=== PATIENT | female | born 1960 | race Caucasian/White ===

== ENCOUNTER 2020-12-13 14:15 | Outpatient (CLI) | payer OTHER, SELFPAY | END 2020-12-13 14:16 | disposition home or self-care (01) | LOC: CHSLAB 14:21 | PROVIDERS: PCP Family Medicine; Visit Provider Specialist | DX: C44.01 Basal cell carcinoma of skin of lip (principal) | CPT/HCPCS: 88305 ==

== ENCOUNTER 2021-06-13 09:43 | Outpatient (CLI) | payer OTHER, SELFPAY | END 2021-06-13 09:44 | disposition home or self-care (01) | LOC: CHSLAB 09:46 | PROVIDERS: PCP Family Medicine; Visit Provider Specialist | DX: C44.319 Basal cell carcinoma of skin of other parts of face (principal); C44.329 Squamous cell carcinoma of skin of other parts of face | CPT/HCPCS: 88305 ==

== ENCOUNTER 2023-08-28 01:18 | Day surgery (SDC) | payer OTHER, SELFPAY ==
[2023-08-02 09:57] VITALS: BMI 32.3
--- NOTE | 2023-08-23 12:48 | SUR.PREOP ---
Patient called regarding upcoming procedure. left voicemail with procedure date and time and contact for questions.
--- NOTE | 2023-08-27 17:40 | PM.HPGS ---
History of Present Illness History of Present Illness Consent: Risks, benefits, and alternatives have been discussed and questions answered. Patient agrees to proceed with procedure. 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 She does feel like that helped the symptoms at that time.? She stopped taking Nexium several years ago.? She has esophageal burning that she feels in her back several times per week and at times after laying down she will have heartburn as well.?Her last colonoscopy was 11 years ago. Review of Systems Review of Systems: All systems reviewed & are unremarkable except as noted in HPI and below PMFSH Past Medical History Medical History Cancer carcinoma in situ cervix Colon cancer screening Gastroesophageal reflux disease Hx of skin cancer, basal cell Obesity Surgical History Surgical History H/O: hysterectomy History of repair of ACL Hx of shoulder surgery Family History Family History Father Malignant neoplasm of prostate Diabetes mellitus Social History Social History Smoking status: Former smoker Tobacco type: cigarettes Alcohol intake: current Drinks per week: 12 Substance use: never Substance use type: does not use Living arrangements: with family Spiritual care concerns: No Meds Home Medications and Allergies Home Medications Medication Instructions Recorded Confirmed Type estradiol 1 mg tablet 1 mg PO DAILY 07/11/23 08/28/23 History fluticasone propionate 50 1 spray intranasal BID 07/11/23 08/28/23 History mcg/actuation nasal spray,suspension Allergies Allergy/AdvReac Type Severity Reaction Status Date / Time No Known Allergies Allergy Verified 08/28/23 08:15 Exam Const: General: alert Orientation/consciousness: patient oriented x3 Resp: Auscultation: clear to auscultation bilaterally Cardio: Rhythm: regular rhythm GI: GI Palp: Yes Soft to palpation and No Tenderness to palpation present (GI) Neuro: General: patient oriented x3 Assessment and Plan Assessment and plan (1) Gastroesophageal reflux disease: Code(s): K21.9 - Gastro-esophageal reflux disease without esophagitis Status: Acute Assessment and Plan: EGD with possible biopsy or dilatation or cautery. (2) Colon cancer screening: Code(s): Z12.11 - Encounter for screening for malignant neoplasm of colon Status: Acute Assessment and Plan: Colonoscopy with possible biopsy or polypectomy or cautery or injection of substances.
[2023-08-28 08:08] VITALS: BP 139/99; PULSE 64; RESP 18; TEMP 36.1; O2SAT 98; BMI 33.3
[2023-08-28] MEDS: LACTATED RINGERS 1,000 ML 150 ML IV CONT (08:33)
--- NOTE | 2023-08-28 08:55 | WPDANESEPPF ---
Anes - Initial Pre Proc Eval Procedure: Operation Date: 08/28/23 09:30 Proposed Procedures p Esophagogastroduodenoscopy & Colonoscopy - Juan Montoya MD Date/Time: 08/28/23 08:55 Surgeon: Juan Montoya MD Pre Op Diagnosis: neoplasm screening, GERD without esophagitis Patient Data Age: 63 Gender: F Height: 1.55 m Weight: 80 kg Last Vital Signs Temp 97.0 F L 08/28/23 08:08 Pulse 64 08/28/23 08:08 Resp 18 08/28/23 08:08 BP 139/99 H 08/28/23 08:08 Pulse Ox 98 08/28/23 08:08 O2 Del Method Room Air 08/28/23 08:08 Allergies Allergy/AdvReac Type Severity Reaction Status Date / Time No Known Allergies Allergy Verified 08/28/23 08:15 Home Medications Medication Instructions Recorded Confirmed Type estradiol 1 mg tablet 1 mg PO DAILY 07/11/23 08/28/23 History fluticasone propionate 50 1 spray intranasal BID 07/11/23 08/28/23 History mcg/actuation nasal spray,suspension Patient hx anesthesia problems: none Family hx anesthesia problems: none Results Review: All pre-operative results and documents have been reviewed as part of the pre-operative evaluation. [facility] Past Medical History Medical History Cancer carcinoma in situ cervix Colon cancer screening Gastroesophageal reflux disease Hx of skin cancer, basal cell Obesity Surgical History Surgical History H/O: hysterectomy History of repair of ACL Hx of shoulder surgery Family History Family History Father Malignant neoplasm of prostate Diabetes mellitus Social History Social History Smoking status: Former smoker Tobacco type: cigarettes Alcohol intake: current Drinks per week: 12 Substance use: never Substance use type: does not use Living arrangements: with family Spiritual care concerns: No Anes - Eval Final PreProcedure Day of Procedure 08/28/23 08:55 Patient weight: obese Heart: regular rate and rhythm Lungs: clear to auscultation Airway: Mallampati scale class III Neurological: alert and oriented Last oral intake: >/= 8 hours ASA classification: III Emergent: no Anesthetic plan: proceed Anesthesia type and monitoring: general GIVS and standard monitoring Results Review: All pre-operative results and documents have been reviewed as part of the pre-operative evaluation. Informed Consent: The patient's anesthetic plan and its attendant risks and benefits were discussed with the patient/family/POA. Questions were solicited and answers provided to the satisfaction of the patient/family/POA.
--- NOTE | 2023-08-28 09:44 | SUR.OPER ---
EGD START: 927; END: 931. COLONOSCOPY START: 939; END: 953.
[2023-08-28 09:58] VITALS: BP 99/62; PULSE 71; RESP 14; O2SAT 100
[2023-08-28 10:08] VITALS: BP 95/55; PULSE 70; RESP 20; O2SAT 100
[2023-08-28 10:18] VITALS: BP 97/55; PULSE 67; RESP 17; O2SAT 100
== END 2023-08-28 10:30 | disposition home or self-care (01) ==
PROVIDERS: PCP Family Medicine; Visit Provider Internal Medicine Gastroenterology
PROC: 0DJ08ZZ Inspection of Upper Intestinal Tract, Via Natural or Artificial Opening Endoscopic (ICD-10-PCS; CPT 43235; principal; 2023-08-28 09:30)
DX: Z12.11 Encounter for screening for malignant neoplasm of colon (principal); K64.4 Residual hemorrhoidal skin tags; K21.00 Gastro-esophageal reflux disease with esophagitis, without bleeding; K22.2 Esophageal obstruction; E66.9 Obesity, unspecified; Z68.33 Body mass index [BMI] 33.0-33.9, adult; Z98.890 Other specified postprocedural states; Z86.001 Personal history of in-situ neoplasm of cervix uteri; Z85.828 Personal history of other malignant neoplasm of skin; Z87.891 Personal history of nicotine dependence; Z80.42 Family history of malignant neoplasm of prostate
CPT/HCPCS: 43239; 45378; 87081; 88305; J1596; J2704; J7120

== ENCOUNTER 2025-04-19 00:55 | Day surgery (SDC) | payer OTHER, SELFPAY ==
--- OUTSIDE RECORDS SUMMARY | 2024-06-01 05:00 | XMS_ITS | Continuity of Care Document ---
Author Organization [facility] [address] [place] [address] Phone Care Team Providers Care Scagliola Mechanic Name Role Phone Linus EDWARDS, Kimberly Unavailable Unavailable Allergies, Adverse Reactions, Alerts Substance Reaction Status Criticality No Known Allergies Active No Inform ation Medications Medication Instructions Dosage Effective Dates (start - stop) Status Comments pantoprazole 40 mg/100 mL (0.4 mg/mL) in 0.9 % sod chlor IV piggyback - Active Prefest 1 mg (15)/1 mg-0.09 mg (15) tablet take 1 tablet by oral route every day - Active fluticasone propionate 50 mcg/actuation nasal spray,suspension inhale 1 spray by intranasal route every day in each nostril 50 MCG - Active estradiol 1 mg tablet take 1 tablet by oral route every day 1 MG - No Longer Active Procedures Procedure Date Fundus Photography W/ Report Refraction Office/outpatient Visit, Est Fundus Photography W/ Report Eye Exam & Treatment Fundus Photography W/ Report Office/outpatient Visit, Est No Charge Optomap Fundus Photos 021 Office/outpatient Visit, New Advance Directives Directive Yes / No Effective Date File Name Other Directive No N/A N/A WARNING:The information contained in this section is historical and is provided for information only and does not constitute a legal document or any assurance that the information is still accurate. Please verify the information with the don of the legal document before using it for clinical purposes. Encounters Encounter Description Practice Location Reason(s) For Visit Diagnoses Date Provider Providers Copied on Encounter Office/outpa tient Visit, Est [facility], [address] [place] [address] [address], [place], [place], [id number], tel:[phone] SEC [place] Professional Complete Exam (chief complaint) Age-related nuclear cataract, bilateralEpire tinal membrane (ERM) of left eyeVitreomacul ar adhesion of right eyeDry eye syndrome of right eye Oct-0 4 Linus OD Kimberly. [address] [place] [address] [address], [address], [place], [place], [id number], [place]. tel:[phone] Referring Provider: Aristides Flores, [email or web address], [place], [address] . tel:[phone] [facility], [address] [place] [address] [address], [place], [place], [id number], [place] tel:[phone] SEC [place] Professional WIE (chief complaint) Vitreous degeneration, bilateralAge-r elated nuclear cataract, bilateralEpire tinal membrane (ERM) of left eye Oct-2 2 Aakash Irving. [address], [address], [place], [place], [address], [place]. tel:[phone] Specialist : Augusto Banegas MD, [address] [place] [address], [address] . tel:[phone] erring Provider: Aristides Flores, [email or web address], [place], [address] . tel:[phone] Office/outpa tient Visit, Est [facility], [address] [place] [address] [address], [place], [place], [address], [place] tel:[phone] SEC [place] Professional PVD f/u (chief complaint) Vitreous degeneration, bilateral May- 1 Aakash Irving. [address] [facility], [address], [place], [place], [address], . tel:[phone] Referring Provider: Aristides Flores, [address] [facility] [address], [place], [address] . tel:[phone] Office/outpa tient Visit, [facility], [address], [place], [place], [address], tel:[phone] [place] Professional WIE (chief complaint) Age-related nuclear cataract, bilateralVitre ous degeneration, left eye Nov-2 1 Aakash Irving. [address] [facility], [facility] [address], [place], [place], [address], [place]. tel:[phone] Referring Provider: Aristides Flores, [address] [facility] [address], [place], [address] . tel:[phone] Family History Family Member Type Diagnosis Age At Onset Problem Family history of degenerati ve disorder of macula Problem Family history of glaucoma Payers Payer name Insurance type Covered republican ID Mario clay(s) Maurotna CI [id number] Social History Type Description Quantity Date Captured Comments Alcohol Use Details Caffeine Use Details Tobacco Use Status Ex-cigarette smoker 024 Smoking Status Former smoker Smoking Tobacco Use Details Cigarette: Age Stopped: 18 Cigarette: No Details Available Sex Female Chief Complaint And Reason For Visit From encounter dated '06/01/2024 10:00'. Complete Exam (chief complaint). Description: The 64 year old patient presents for evaluation of Complete Exam in the right eye and left eye. Pt states no changes in Ou since last visit. [facility] to [facility] after last visit and they said they it was nothing over concerning and to follow up with them as needed. Reason For Referral Reason For Referral No Information Plan Of Treatment Date Type Action Status Goal Tobacco cessation counseling completed Goal Tobacco cessation counseling completed Referral Referred To: Augusto Banegas MD [address] [place], [place], [phone] Ordered: Referrals: Allopathic & Osteopathic Physicians : Ophthalmology. Augusto Banegas MD Evaluate and treat ordered Patient Education Cataracts: Care Instruc tions completed Patient Education Learning About Vitreous Detachment completed Patient Education Learning About Vitreous Detachment completed History Of Present Illness Encounter Date Complaint History Of Prese nt Illness Complete Exam The 64 year old patient presents for evaluation of Complete Exam in the right eye and left eye. Pt states no changes in Ou since last visit. [facility] to [facility] after [facility] visit and they said they it was nothing over concerning and to follow up with them as needed. WIE The 61 year old patient presents for evaluation of WIE in the right eye. Patient states she started seeing flashes of light about a week ago then a couple of days ago her floaters got worse out of the right eye. PVD f/u The 60 year old female presents for evaluation of PVD f/u in the left eye. Hx Cataract OU. Pt reports still noticing floaters and flashes OS. She primarily notices flashes of light when she moves from a light to dark room. Pt denies dark curtains OU. WIE The 60 year old female presents for evaluation of WIE in the left eye. Hx of BRUNA OU and an Old eye injury. Patient states she started seeing flashes of light out of her left eye x 1 week. Patient states she has had floaters for years but increased floaters. Functional Status Date Functional Assessmen t No Information Medications Administered Medication Instructions Dosage Effective Dates (start - stop) Status Comments estradiol 1 mg tablet take 1 tablet by oral route every day 1 MG - No Longer Active Instructions Date Instruction Additional Infor abdon Impression/Plan Impression/Plan Impression/Plan Impression/Plan Assessments Type Assessment Date assessment Age-related nuclear cataract, bi lateral assessment Epiretinal membrane (ERM) of lef t eye assessment Vitreomacular adhesion of right eye assessment Dry eye syndrome of right eye Oc Patient Care Teams Name Effective Dates (start - stop) Status Members No Information
[2025-02-25 13:58] VITALS: BMI 33.6
--- NOTE | 2025-02-25 14:06 | PC.NURSE ---
Addendum entered by Rajesh Velez RN 04/08/25 12:42: Says no health history changes since prior interview. Instructed to be here at 0730 on 04-19-2025 for surgery at 0930. Reviewed all instruction below with patient again. Original Note: Report to the Outpatient Waiting Room, entrance under the green pavilion located off [facility], at time _0700_ on date _[id number]_. Planned Procedure Time: _0900_.? Time changes happen often and if your time is changed the preop area will call you the afternoon before. - You and your visitor will be asked to self-screen and do not enter if you have any COVID symptoms. Please call surgeon if you need to reschedule. - A mask is optional within the hospital at this time. Patients may have clear liquids (water, carbonated beverages, clear teas, apple juice) until 3 hours prior to surgery with a maximum of 20 ounces. - No food from midnight until time of surgery and no smoking, or chewing tobacco (or any form of nicotine). No chewing gum, candy or mints. Take only the following medications with a SIP of water on the morning of surgery: __Flonase DO NOT STOP ANY OF YOUR OTHER PRESCRIPTION MEDICATIONS PRIOR TO SURGERY EXCEPT THE FOLLOWING Hold all vitamins and supplements for 3 days per anesthesiologist. Medications to discontinue per physician Date to take last dose Please no make-up, nail burkinan, hairspray, perfume, deodorant, or body powder the day of surgery.? No jewelry (including any body piercings) or valuables the day of surgery, leave them at home.? Please take a shower or bath the night before, or the morning of, surgery with an antibacterial soap.? Wear comfortable, loose fitting clothing.? - Jewelry must be removed prior to entering the operating room.? Rings and piercings that are not removed may be cut off. - The hospital will not accept responsibility for valuables.? - Please leave all valuables, including medications, at home the day of surgery. If you are going home after surgery, a licensed moving van driver must drive you home.? - NO public transportation without another adult if you receive anesthesia. - We recommend that an adult stay with you for 24 hours following discharge. - We also recommend that you do not drive, make important decision, drink alcoholic beverages, or take any drugs that were not prescribed by your health care provider for at least 24 hours after your discharge time. Follow any additional instructions given to you from your surgeon. Telephone instructions given to ___Nancy__and asked if any additional questions and then verbalized understanding. Patient advised to call surgeon office or pre surgery nurse liaison [phone] if any additional questions.
[2025-04-19] VITALS (9 sets, daily range): BP systolic 149–160; BP diastolic 71–89; PULSE 53–89; RESP 10–18; TEMP 36.2; O2SAT 12–100
--- OUTSIDE RECORDS SUMMARY | 2025-04-19 00:58 | XMS_ITS | Clinical Summary ---
Author Organization [facility] Address [address] [place] [address] Care Team Providers Care Nurse Technician Name Role Phone Mitch Monreal MD Primary Care Provider Source Comments [facility],non-owned Affiliates and Associated Physician Practices is amultiple site organization consisting of ambulatory clinics and hospital sitesin [place], [place], [place] and [place]. This disclosure is being madepursuant to the Care Everywhere program and may not contain all information available regarding this patient. Last updated 18.[facility] Social History Tobacco Use Types Packs/Day Years Used Date Smoking Tobacco: Never Assessed Comments Unknown Sex and Gender Information Value Date Recorded Sex Assigned at Not on file Legal Sex Female 2:05 PM CDT Gender Identity Not on file Sexual Orientation Not on file Plan of Treatment Health Maintenance Due Date Last Done Comments COLOGUARD (AGES 45-75) - COL ON CA SCREENING 1960 COLON MONITORING 1960 COLONOSCOPY - COLON CA SCREENING 1960 CT COLONOGRAPHY - COLON CA SCREENING 1960 Colorectal Cancer Screening 1960 FIT - COLON CA SCREENING 1960 FLEX SIG - COLON CA SCREENING 1960 LIPID TESTING 1960 MAMMOGRAM 1960 HIV SCREENING 1975 HEPATITIS C SCREENING 05/09/1978 DTAP/TDAP/TD VACCINES (1 - Tdap) 1979 PAP SMEAR 1981 PNEUMOCOCCAL VACCINE 50+ (1 of 1 - PCV) 2010 ZOSTER VACCINE (1 of 2) 2010 COVID-19 VACCINE (1 - 2023-2 5 season) 2024 DEPRESSION SCREENING 08/26/2024 INFLUENZA VACCINE (#1) 2025 Respiratory Syncytial Virus (RSV) Vaccine Pt: or over 60 yrs (1 - 1-dose 75+ series) 2035 HEPATITIS B VACCINE Aged Out No longe r eligible based on patient's age to complete this topic HIB VACCINE Aged Out No longer eligi ble based on patient's age to complete this topic HPV VACCINE Aged Out No longer eligi ble based on patient's age to complete this topic MENINGOCOCCAL (Group B) VACC INE SHARED DECISION-MAKING Aged Out No longer eligibl e based on patient's age to complete this topic MENINGOCOCCAL GROUPS A/C/Y/W VACCINE Aged Out No longer eligible b ased on patient's age to complete this topic Insurance [employer] SELF PAY NO INSURANCE Member Subscriber Plan / Payer (Ef fective for All Dates) Name:Viridiana Alvarez Member ID:Not on file Relation to Subscriber:Not on file Name:VIRIDIANA ALVAREZ Subscriber ID:Not on file (Home) Address: [address] [place] [address] Payer ID:Not on file Group ID:Not on file Type:Self Pay Address: [place], [place] Care Teams Nurse Technician Relationship Specialty Start Date End Date Mitch Monreal MD [address] [place] [phone] PCP - General 06/18/21
--- OUTSIDE RECORDS SUMMARY | 2025-04-19 00:58 | XMS_ITS | Clinical Summary ---
Author Organization [facility] Address [address] [place] [address] Phone Care Team Providers Care Commodity Broker Name Role Phone Mitch Monreal MD Primary Care Provider [phone] Social History Tobacco Use Types Packs/Day Years Used Date Smoking Tobacco: Never Assessed Comments Unknown Sex and Gender Information Value Date Recorded Sex Assigned at Not on file Legal Sex Female 10:56 PM CDT Gender Identity Not on file Sexual Orientation Not on file Plan of Treatment Health Maintenance Due Date Last Done Comments Hepatitis C Virus (HCV) Screening 1960 TdaP Immunization 1960 Pap Smear 1981 Cervical Cancer Screening (CCS) 1990 HPV/Cotest 1990 Cologuard 2005 Colonoscopy 2005 Colorectal Cancer Screening 2005 Immunochemical Fecal Occult Blood 2005 Pneumococcal Immunization (50+ years) (1 of 1 - PCV) 2010 SARS-COV-2 Immunization ( season) 2024 08/02/2021, 10/18/2020, 09/20/2020 Influenza Immunization (#1) 04/26/202505/26, 06/17/2019, 06/11/2018, Additional history exists Respiratory Syncytial Virus (RSV) Immunization (Adult) (1 - 1-dose 75+ series) 2035 Zoster Immunization Completed 07/28/2018, 8 Hepatitis B Immunization Aged Out No longer eligible based on patient's age to complete this topic Human Papillomavirus (HPV) Immunization Aged Out No longer eligible based on patient's age to complete this topic Meningococcal Immunization (ACWY) Aged Out No longer eligible based on patient's age to complete this topic Rotavirus Immunization Aged Out No lo nger eligible based on patient's age to complete this topic Insurance [employer] SOI Care Teams Commodity Broker Relationship Specialty [place] [address] [place] [address] PCP - General Family Medicine 01/16/21
--- OUTSIDE RECORDS SUMMARY | 2025-04-19 00:58 | XMS_ITS | Clinical Summary ---
Author Organization [facility] Address [address] [place] [address] Care Team Providers Care Technical Education Teacher Name Role Phone Mitch Monreal MD Primary Care Provider [phone] Allergies Active Allergy Reactions Criticality Noted Date Comments Adhesive Tape-Silicones Rash Medium 06/27/2018 Medications fluticasone (FLONASE) 50 mcg/actuation nasal spray inhale 2 spray by Intranasal route every day in each nostril 3 Inhaler 3 3 Active montelukast (SINGULAIR) 10 mg tablet take 1 tablet (10MG) by ORAL route every day in the evening 90 3 1 Active melatonin 5 mg tablet 5 mg. 0 0 5 Active estradiol (ESTRACE) 2 mg tablet take 1 tablet by oral route every day 0 0 5 Active flaxseed 1,000 mg capsule Take by mouth. Acti ve cholecalciferol (VITAMIN D-3) 10,000 unit capsule Take 10,000 Units by mouth daily. Active fish oil-dha-epa 1,200-144-216 mg capsule Take by mouth. Acti ve vitamin P51-bnptc acid 0.5-1 mg tablet Take by mouth daily. Active estradiol-melodie stimate (Prefest) 1 mg (15)/1 mg- 0.09 mg (15) tablet Take 1 tablet by mouth daily Active predniSONE (DELTASONE) 10 mg tablet 1 Active Active Problems Problem Noted Date Diagnosed Date Basal cell carcinoma (BCC) of right side of nose 07/30/2018 Injury of head 12/07/2014 Overview (11/30/2016): Head trauma Syncope 12/07/2014 Overview (11/30/2016): Syncope Headache 12/07/2014 Overview (11/30/2016): Headache Insomnia 01/09/2014 Overview (11/30/2016): INSOMNIA NEC Atopic rhinitis 01/09/2014 Overview (11/30/2016): ALLERGIC RHINITIS NOS Immunizations Immunization Administration Dates Next Due Influenza, Split 06/26/2010 Tdap 01/01/2006 Surgical History Surgery Date Site/Laterality Comments OTHER SURGICAL HISTORY 1989 cervical carcinoma insitu: Hysterectomy, vaginal Medical History Medical History Date Comments Insomnia insomnia Hx Other Medical HNP T spine Hx Other Medical 1989 cervical carcin margarito insitu 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 Hx Other Medical ACL reconstruct ion Hx Other Medical Skin cancer rem oval from vulva Hx Other Medical 2012 basal cell canc er removal vulva Hx Other Medical GERD Hx Other Medical Back pain Osteoarthritis Osteoarthritis Family History Medical History Relation Name Comments Diabetes type II Father Diabetes -T ype II; Prostate cancer Father Cancer -pros barrera; Breast cancer Maternal Grandmother Cancer -breast; Relation Name Status Comments Father Maternal Grandmother Alive Social History Tobacco Use Types Packs/Day Years Used Date Smoking Tobacco: Former Smokeless Tobacco: Never Tobacco Cessation:Counseling Given: Not Answered Comments:quit 40 yrs ago Alcohol Use Standard Drinks/Week Comments Yes 0 (1 standard drink = 0.6 oz pur e alcohol) Comments Unknown Sex and Gender Information Value Date Recorded Sex Assigned at Not on file Legal Sex Female 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 Gender Identity Not on file Sexual Orientation Not on file Obstetrics History Last Filed Vital Signs Vital Sign Reading Time Taken Comments Blood Pressure 119/76 04/29/2024 7:49 AM CDT Pulse 61 04/29/2024 7:49 AM CDT Temperature - - Respiratory Rate - - Oxygen Saturation 96% 04/29/2024 7:49 AM CDT Inhaled Oxygen Concentration - - Weight 76.2 kg (168 lb) 08/31/2015 4:00 PM BLANKING PRESS OPERATOR Height 153.7 cm (5' 0.5) 08/31/2015 4:00 PM BLANKING PRESS OPERATOR Body Mass Index 32.27 08/31/2015 4:00 PM BLANKING PRESS OPERATOR Plan of Treatment Not on file Insurance [facility] Care Teams Technical Education Teacher Relationship Specialty Start Date End Date Mitch Monreal MD PCP - General Family Medicine 05/28/18
--- OUTSIDE RECORDS SUMMARY | 2025-04-19 00:58 | XMS_ITS | Encounter Summary ---
Author Organization [facility] Address [address] [place] [address] Care Team Providers Care Orthotist Prosthetist Name Role Phone Mitch Monreal MD Primary Care Provider [phone] Encounter Details Date Type Department Care Team (Late st Contact Info) Description 07/02/2023 Lab Requisition [facility] - DermPath Lab [address] [facility] [place] [address] Bay Gonzalez Jr., MD [address] [facility] [address] [place] [address] Social History Tobacco Use Types Packs/Day Years Used Date Smoking Tobacco: Never Assessed Comments Unknown Sex and Gender Information Value Date Recorded Sex Assigned at Not on file Legal Sex Female 2:05 PM CDT Gender Identity Not on file Sexual Orientation Not on file documented as of this encounter Plan of Treatment Not on file documented as of this encounter Procedures Procedure Name Priority Date/Time Associated Diagnosis Comments DERMATOPATHOLOGY Routine 07/01/2023 12:0 0 AM SERGING MACHINE OPERATOR documented in this encounter Results * DERMATOPATHOLOGY (07/01/2023 12:00 AM SERGING MACHINE OPERATOR) Case Report Dermatopathology Report Case: [id number] Authorizing Provider: Bay Gonzalez Jr., MD Collected: 07/01/2023 12:00 AM Ordering Location: [facility] DermPath Lab Received: 07/02/2023 02:09 PM Pathologist: Arabella Mendoza MD Specimen: Skin, right anterior distal thigh 2:07 PM SERGING MACHINE OPERATOR DERMATOPATHOLOGY LABORATORY Final Diagnosis Specimen A. SKIN, right anterior distal thigh: VERRUCA VULGARIS (B07.8) 3 2:07 PM [facility] DERMATOPATHOLOGY LABORATORY at 1407 SERGING MACHINE OPERATOR Clinical History Inflamed Seborrheic Keratosis vs. Nguyen's Disease vs. Verruca Vulgaris 3 2:07 PM [facility] DERMATOPATHOLOGY LABORATORY Gross Description Specimen A: Received is one formalin filled container labeled with the patient's name and designated right anterior distal thigh. The specimen consists of a shave biopsy measuring 6x6x2 mm. Jar 0. 3 2:07 PM [facility] DERMATOPATHOLOGY LABORATORY Microscopic Description Specimen A. SKIN, right anterior distal thigh: There is digitated epidermal hyperplasia, hypergranulosis, vacuolated granular layer cells, and compact hyperorthokeratosis . 3 2:07 PM [facility] DERMATOPATHOLOGY LABORATORY Disclaimer An external and internal positive and negative controls are appropriate for the histochemical, immunohistochemical and immunofluorescence stain(s) in this case (if any), except where stated explicitly. The performance characteristics of the stain(s) cited in this report were developed and its performance characteristic determined by the Dermatopathology Laboratory at [facility], directed by Dr. Mark Thompson. These tests need not be, and therefore are not, approved by the [place] Food and Drug Administration. The tests are used for clinical purposes. Billing Codes Specimen Charges Stain Charges 38411 1 3 2:07 PM [facility] DERMATOPATHOLOGY LABORATORY Embedded Images 3 2:07 PM [facility] DERMATOPATHOLOGY LABORATORY Pathology/Cytolog y TISSUE SPECIMEN FROM SKIN / Unknown 07/01/2023 07/02/2023 2:09 PM [facility] Bay Gonzalez Jr., MD LAB - PATHOLOGY/CYTOLOG Y ORDERABLES Final Result DERMATOPATHOLOGY LABORATORY [facility] - Department of Dermatology [address] [place] [address], [facility] [phone] documented in this encounter Visit Diagnoses Not on filedocumented in this encounter Care Teams Orthotist Prosthetist Relationship Specialty Start Date End Date Mitch Monreal MD [address] [place] [phone] PCP - General 06/18/21 documented as of this encounter
--- OUTSIDE RECORDS SUMMARY | 2025-04-19 00:58 | XMS_ITS | Encounter Summary ---
Author Organization [facility] Address [address] [place] [address] Care Team Providers Care Community Relations Coordinator Name Role Phone Mitch Monreal MD Primary Care Provider Encounter Details Date Type Department Care Team (Late st Contact Info) Description 03/23/2024 Lab Requisition [facility] - DermPath Lab [address] [facility] [place] [address] Bay Gonzalez Jr., MD [address] [facility] [address] [place] [address] Social History Tobacco Use Types Packs/Day Years [...] Priority Date/Time Associated Diagnosis Comments DERMATOPATHOLOGY Routine 03/20/2024 3:33 AM CDT documented in this encounter Results * DERMATOPATHOLOGY (03/20/2024 3:33 AM CDT) Case Report Dermatopathology Report Case: [id number] Authorizing Provider: Bay Gonzalez Jr., MD Collected: 03/20/2024 03:33 AM Ordering Location: [facility] - Received: 03/23/2024 11:50 AM DermPath Lab Pathologist: Emily Jordan MD Specimens: A) - Skin, right anterior distal thigh B) - Skin, left medial proximal pretibial region C) - Skin, right inferior medial malar cheek D) - Skin, left distal lateral posterior upper arm 4 4:09 PM CDT DERMATOPATHOLOGY LABORATORY Final Diagnosis Specimen A. SKIN, right anterior distal thigh: BENIGN VERRUCOUS KERATOSIS (L82.1) Specimen B. SKIN, left medial proximal pretibial region: HYPERPLASTIC (HYPERTROPHIC) ACTINIC KERATOSIS (L57.0) Specimen C. 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 SKIN, left distal lateral posterior upper arm: BENIGN VERRUCOUS KERATOSIS, INFLAMED (L82.1) 4 4:09 PM T DERMATOPATHOLOGY LABORATORY at 1609 CDT Clinical History A-B: SCC vs AK vs ISK vs VV C: Keratoacanthoma D: ISK vs VV 4 4:09 PM T DERMATOPATHOLOGY LABORATORY Gross Description Specimen A: Received is one formalin filled container labeled with the patient's name and designated right anterior distal thigh. The specimen consists of a shave biopsy measuring 7x7x3 mm. Jar 0. Specimen B: Received is one formalin filled container labeled with the patient's name and designated left medial proximal pretibial region. The specimen consists of a shave biopsy measuring 7x7x3 mm. Jar 0. Specimen C: Received is one formalin filled container labeled with the patient's name and designated right inferior medial malar cheek. The specimen consists of a shave biopsy measuring 8x8x5 mm. Jar 0. Specimen D: Received is one formalin filled container labeled with the patient's name and designated left distal lateral posterior upper arm. The specimen consists of a shave biopsy measuring 84u10y1 mm. Jar 0. 4 4:09 PM CDT DERMATOPATHOLOGY LABORATORY Microscopic Description Specimen A. SKIN, right anterior distal thigh: Sections show hyperkeratosis, papillomatosis, hypergranulosis, and acanthosis. These histological findings can be seen in a verruca vulgaris or a seborrheic keratosis. Specimen B. SKIN, left medial proximal pretibial region: There is hyperkeratosis alternating with parakeratosis. There is epidermal hyperplasia with disorderly maturation of keratinocytes with nuclear pleomorphism confined to the lower half of the epidermis. Specimen C. SKIN, right inferior medial malar cheek: Sections show an endo exophytic crateriform lesion with a keratotic plug, formed by confluent follicle-like structures with relatively large keratinocytes. Specimen D. SKIN, left distal lateral posterior upper arm: Sections show hyperkeratosis, papillomatosis, hypergranulosis, and acanthosis. Inflammatory cells are present within the dermis. These histological findings can be seen in a verruca vulgaris or a seborrheic keratosis. 4 4:09 PM CDT DERMATOPATHOLOGY LABORATORY Disclaimer An external and internal positive and negative controls are appropriate for the histochemical, immunohistochemical and immunofluorescence stain(s) in this case (if any), except where stated explicitly. The performance characteristics of the stain(s) cited in this report were developed and its performance characteristic determined by the Dermatopathology Laboratory at [facility], directed by Dr. Mark Thompson. These tests need not be, and therefore are not, approved by the [place] Food and Drug Administration. The tests are used for clinical purposes. Billing Codes Specimen Charges Stain Charges 16327 74473 83062 80078 1 1 1 1 4 4:09 PM CDT DERMATOPATHOLOGY LABORATORY Embedded Images 4 4:09 PM CDT DERMATOPATHOLOGY LABORATORY Pathology/Cytology TISSUE SPECIMEN FROM SKIN / Unknown 03/20/2024 3:33 AM CDT 03/23/2024 11:50 AM CDT Miscellaneous samples (specimen) TISSUE SPECIMEN FROM SKIN / Unknown 03/20/2024 3:33 AM CDT 03/23/2024 11:50 AM CDT Miscellaneous samples (specimen) TISSUE SPECIMEN FROM SKIN / Unknown 03/20/2024 3:33 AM CDT 03/23/2024 11:50 AM CDT Miscellaneous samples (specimen) TISSUE SPECIMEN FROM SKIN / Unknown 03/20/2024 3:33 AM CDT 03/23/2024 11:50 AM CDT us Bay Gonzalez Jr., MD LAB - PATHOLOGY/CYTOLOG Y ORDERABLES Final Result DERMATOPATHOLOGY LABORATORY [facility] - Department of Dermatology [address], [address] Floor [place], [place] [address] [place] [address] documented in this encounter Visit Diagnoses Not on filedocumented in this encounter Care Teams Community Relations Coordinator Relationship Specialty Start Date End Date Mitch Monreal MD [address] [place] [phone] PCP - General 06/18/21 documented as of this encounter
--- OUTSIDE RECORDS SUMMARY | 2025-04-19 00:58 | XMS_ITS | Clinical Summary ---
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 Gender Identity Not on file Sexual Orientation Not on file Plan of Treatment Health Maintenance Due Date Last Done Comments Colorectal Cancer Screening Colonoscopy (10 Years) 1960 Annual Physical 1963 Hepatitis C 1978 Pneumococcal Vaccine: 50+ Years (1 of 1 - PCV) 2010 DTaP, Tdap and Td Vaccines (2 - Td or Tdap) 01/02/2016 01/01/2006 COVID-19 Vaccine ( - season) 2024 Cervical Cancer Screening Pap Smear (Age 30 to 64) Every 3 Years 05/23/2025 05/23/2022 Mammogram Screening 11/26/2026 11/26/2024, 10/18/2023, 09/17/2022, Additional history exists Cervical Cancer Screening Pap with HPV Testing (Age 30 to 64) Every 5 Years 05/23/2027 05/23/2022 Cervical Cancer Screening with HPV 05/23/2027 RSV Immunization or 60+ Years (1 - 1-dose 75+ series) 2035 Zoster Vaccines Completed 07/28/2018, 05/29/2018 Meningococcal B Vaccine Aged Out No l onger eligible based on patient's age to complete this topic Meningococcal Vaccine Aged Out No juno jameson eligible based on patient's age to complete this topic RSV Immunizations Under 20 Months Aged Out No longer eligible based on patient's age to complete this topic Procedures Procedure Name Priority Date/Time Associated Diagnosis Comments MG SCREENING W SHYLA AMI DIGI Routine 11/26/2024 10:07 AM CDT Visit for screening mammogram HUMAN PAPILLOMAVIRUS, HIGH-RISK TYPES Routine 05/23/2022 12:00 PM CDT CYTOPATH CERV/VAG THIN LAYER Routine 05/23/2022 7:24 AM CDT from Last 3 Months or Most Recently Relevant to Health Maintenance Results * MG SCREENING W SHYLA AMI DIGI (11/26/2024 10:07 AM CDT) Anatomical Region Laterality Modality Breast Bilateral Mammography 11/26/2024 11:3 5 AM CDT Impressions 11/26/2024 11:35 AM CDT IMPRESSION: No suspicious change since the previous exams. Recommendation: 1: Routine Screening Bilateral in 1 Year Assessment: ACR BI-RADS 2 - BENIGN FINDING(S) Ordered By: MITCH GAYLE Interpreted By: Terry Parada MD, 11/26/2024 11:35 AM Narrative 11/26/2024 11:35 AM CDT [address] [place] [address] Examination: Digital screening mammogram with CAD. Clinical history: Asymptomatic patient presents for routine screening. Comparison: 10/18/2023, 09/17/2022, 07/27/2021, 07/11/2020. Technique: Bilateral digital mammograms. The exam was interpreted with the use of a computer-aided detection (CAD) system. Additional 3-D tomosynthesis images were acquired. Tissue density: There are scattered areas of fibroglandular density. Findings: The breast tissue contains scattered fibroglandular densities. Benign-appearing calcification noted. No suspicious mass, microcalcification or area of architectural distortion can be identified. From a mammographic standpoint, routine followup in one year would seem adequate. Mitch Gayle MD MAMMO Final Result * HUMAN PAPILLOMAVIRUS, HIGH-RISK TYPES (05/23/2022 12:00 PM CDT) SPECIMEN CERVICAL/END OCERVICAL 05/25/2022 8:55 AM CDT [facility] HPV DNA HIGH RISK NEGATIVE NEGATIVE 05/25/2022 5:23 PM CDT [facility] Comment:SEE CYTOLOGY REPORT 05/23/2022 12:0 0 PM CDT Mirlande Archuleta MD PATHOLOGY/CYTOLOGY ORDERABLES Final Result [facility] [address] [place] [address], * Cytopath Cerv/Vag Thin Layer (05/23/2022 7:24 AM CDT) THIN PREP PAP [facility] [address] [place] [address] Department of Pathology Pathology Report CERVICAL/VAGINAL PAP SMEAR REPORT Name: VIRIDIANA WELCH Age: 9 1960 (Age: 62) Location: [facility] Sex: F Collected Date: 05/23/2022 Hospital #: [id number] Date Received: 05/25/2022 Date Reported: 05/29/2022 Provider: MIRLANDE GAYLE MD INTERPRETATION CERVICAL/ENDOCERVI ADRIENNE: SATISFACTORY FOR EVALUATION. ENDOCERVICAL/TRANS FORMATION ZONE COMPONENT ABSENT. NEGATIVE FOR INTRAEPITHELIAL LESION OR MALIGNANCY. NEGATIVE FOR HIGH RISK HPV. The FDA approved Aptima HPV assay is an in vitro nucleic acid amplification test for the qualitative detection of E6/E7 viral messenger RNA (mRNA) from 14 high-risk types of human papillomavirus (HPV) in cervical specimens. The high-risk HPV types detected by the assay include: 16,18,31,33,35,39, 45,51,52,56,58,59, 66, and 68. 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 It is a screening test. Negative results on combined screening (Pap test and HPV-DNA) have a high negative predictive value (99.1-100 percent) for cervical cancer. The pap test is not effective in detecting cervical adenocarcinoma. [facility] 05/23/2022 7:24 AM CDT 05/25/2022 7:24 AM CDT Comment:CERVICAL/ENDOCERVICA L Mirlande Archuleta MD PATHOLOGY/CYTOLOGY ORDERABLES Final Result [facility] [address] [place] [address], from Last 3 Months or Most Recently Relevant to Health Maintenance Insurance [employer] Care Teams Heel Breaster Relationship Specialty Start Date End Date Mitch Gayle MD PCP - General FAMILY PRACTICE 03/03/18
[2025-04-19] MEDS: ACETAMINOPHEN 500 MG TABLET 1000 MG PO (07:25)
--- NOTE | 2025-04-19 07:27 | PM.IMHP ---
H&P: HPI History of Present Illness Date/Time: 04/19/25 07:27 Chief Complaint: chronic rhinosinusitis Review of Systems Review of Systems: All systems reviewed & are unremarkable except as noted in HPI and below PMFSH Past Medical History Medical History Hx of skin cancer, basal cell Obesity Cancer carcinoma in situ cervix Colon cancer screening Gastroesophageal reflux disease Surgical History Surgical History Hx of shoulder surgery History of repair of ACL H/O: hysterectomy Family History Family History Father Malignant neoplasm of prostate Diabetes mellitus Social History Social History Smoking packs per day: 1 Smoking cigarettes per day: 20.0 Years smoked: 5 Smoking pack-years: 5.00 Smoking status: Former smoker Tobacco type: cigarettes Smoking end date: 02/26/80 Alcohol intake: current Drinks per week: 10 Substance use: never Substance use type: does not use Living arrangements: with family Spiritual care concerns: No Meds Home Medications and Allergies Home Medications ?Medication ?Instructions ?Recorded ?Confirmed ?Type estradiol 1 mg tablet 1 mg PO DAILY 07/11/23 02/25/25 History fluticasone propionate 50 1 spray intranasal BID 07/11/23 02/25/25 History mcg/actuation nasal spray,suspension pantoprazole 40 mg tablet,delayed 40 mg PO QAM #90 tabs 09/02/23 02/25/25 Rx release calcium carbonate (Calcium 500) 500 mg PO DAILY 02/25/25 04/08/25 History cholecalciferol (vitamin D3) 25 1,000 unit PO DAILY 02/25/25 02/25/25 History mcg (1,000 unit) tablet (Vitamin D3) loratadine 10 mg tablet 10 mg PO DAILY 02/25/25 02/25/25 History (Allerclear) Allergies Allergy/AdvReac Type Severity Reaction Status Date / Time No Known Allergies Allergy Verified 04/08/25 12:43 Exam Narrative: deviated septum, chronic sinusitis, rest of exam wnl Assessment and Plan Assessment and plan (1) Deviated septum: Code(s): J34.2 - Deviated nasal septum Status: Acute Plan Pt here for septoplasty, turbinoplasty, bilateral maxillary antrostomy. r/b/a reviewed, all questions answered, pt understands and agrees to proceed. refer to outpt H&P for further details
--- NOTE | 2025-04-19 07:29 | WPDHPUPDATE1 ---
History and Physical Update Update Date/Time: 04/19/25 07:29 History and Physical has been reviewed, including an updated exam of the patient. There are NO changes in the patient's condition. Risks, benefits, and alternatives have been discussed and questions answered. Patient agrees to proceed with procedure.
[2025-04-19] MEDS: LACTATED RINGERS 1,000 ML 30 ML IV CONT ×2 (07:30→10:15)
--- NOTE | 2025-04-19 07:47 | WPDANESEPPF ---
Anes - Initial Pre Proc Eval Procedure: Operation Date: 04/19/25 09:30 Proposed Procedures p Bilateral Turbinate Reduction, - Oli Guerrero MD s Bilateral Maxillary Antrostomy, - Oli Guerrero MD s Septoplasty - Oli Guerrero MD Date/Time: 04/19/25 07:47 Surgeon: Oli Guerrero MD Pre Op Diagnosis: deviat septum, turbinate hypertrophy, chronic sinu Patient Data Age: 64 Gender: F Height: 1.54 m Weight: 86.7 kg Last Vital Signs Temp 36.2 C L 04/19/25 07:15 Pulse 53 L 04/19/25 07:15 Resp 18 04/19/25 07:15 BP 160/82 H 04/19/25 07:15 Pulse Ox 99 04/19/25 07:15 O2 Del Method Room Air 04/19/25 07:15 Allergies Allergy/AdvReac Type Severity Reaction Status Date / Time No Known Allergies Allergy Verified 04/19/25 07:37 Home Medications ?Medication ?Instructions ?Recorded ?Confirmed ?Type estradiol 1 mg tablet 1 mg PO DAILY 07/11/23 04/19/25 History fluticasone propionate 50 1 spray intranasal BID 07/11/23 04/19/25 History mcg/actuation nasal spray,suspension pantoprazole 40 mg tablet,delayed 40 mg PO QAM #90 tabs 09/02/23 02/25/25 Rx release calcium carbonate (Calcium 500) 500 mg PO DAILY 02/25/25 04/19/25 History cholecalciferol (vitamin D3) 25 1,000 unit PO DAILY 02/25/25 04/19/25 History mcg (1,000 unit) tablet (Vitamin D3) loratadine 10 mg tablet 10 mg PO DAILY 02/25/25 04/19/25 History (Allerclear) Patient hx anesthesia problems: none Family hx anesthesia problems: none Results Review: All pre-operative results and documents have been reviewed as part of the pre-operative evaluation. [facility] Past Medical History Medical History Hx of skin cancer, basal cell Obesity Cancer carcinoma in situ cervix Colon cancer screening Gastroesophageal reflux disease Surgical History Surgical History Hx of shoulder surgery History of repair of ACL H/O: hysterectomy Family History Family History Father Malignant neoplasm of prostate Diabetes mellitus Social History Social History Smoking packs per day: 1 Smoking cigarettes per day: 20.0 Years smoked: 5 Smoking pack-years: 5.00 Smoking status: Former smoker Tobacco type: cigarettes Smoking end date: 02/26/80 Alcohol intake: current Drinks per week: 10 Substance use: never Substance use type: does not use Living arrangements: with family Spiritual care concerns: No Anes - Eval Final PreProcedure Day of Procedure 04/19/25 07:47 Patient weight: obese Heart: regular rate and rhythm Lungs: clear to auscultation Airway: Mallampati scale class II Neurological: alert and oriented Last oral intake: >/= 8 hours ASA classification: II Emergent: no Anesthetic plan: proceed Anesthesia type and monitoring: general ETT and standard monitoring Results Review: All pre-operative results and documents have been reviewed as part of the pre-operative evaluation. Informed Consent: The patient's anesthetic plan and its attendant risks and benefits were discussed with the patient/family/POA. Questions were solicited and answers provided to the satisfaction of the patient/family/POA.
[2025-04-19] MEDS: SCOPOLAMINE 1 MG PATCH 1 PATCH TRANSDERM (08:00)
--- NOTE | 2025-04-19 08:54 | W.PM.PROC2 ---
Procedure Note - Detailed Date of Procedure 04/19/25 Pre-op Diagnosis deviat septum, turbinate hypertrophy, chronic sinu Post-op Diagnosis Same Procedure Performed Septoplasty, bilateral inferior turbinoplasty, bilateral maxillary antrostomy, image guided surgery Surgeon Oli Guerrero MD Anesthesia General Indications deviated septum. chronic sinusitis Findings Right septal deviation. Bruno splints and nasopore bilaterally. Description of Procedure On the date of procedure the patient was met in the preoperative area and risk and benefits of the procedure reviewed with the patient as documented in the H&P and they elected to proceed with surgery. Patient was brought back to the operating room by the anesthesia team and underwent general endotracheal anesthesia. Once an adequate plane of anesthesia was obtained a timeout was performed to assure the patient identification the patient here to be performed were correct. They were.The patient was then prepped and draped in the normal fashion for endoscopic sinus surgery. The diffusion image guidance system was calibrated and used for the entire case. Afrin-soaked pledgets were placed in the nasal cavities bilaterally. The entire case was performed under endoscopic visualization. Nasal endoscopy was performed at the beginning of the case. 1% lidocaine with 1:100,000 epinephrine was then injected into the root of the middle turbinate and lateral nasal wall. The right side was narrowed due to septal deviation.? Thus, septoplasty was required.? A left hemitransfixion incision was made in the left caudal septum and a mucoperichondrial flap was elevated in the usual fashion. The flap was elevated under endoscopic visualization and the remainder of the case was performed with endoscopic assistance. Using a D-knife, an incision was made through the cartilaginous septum with care to preserve the appropriate caudal and dorsal ?L-strut? of cartilage. The cartilage was then disarticulated from the bony-cartilaginous junction and the deviated cartilage was removed. Further deviated bone and cartilage was removed from the maxillary crest and posterior bony septum with care to avoid injury to the mucoperichondrial flap using a combination of dissection and Otilia forceps. Once this was completed, the hemitransfixion incision was closed using simple interrupted 4-0 chromic suture. A quilting stitch to reapproximate the mucoperichondrial flaps was then placed using 4-0 plain gut suture on a Arnav needle. Attention was then directed towards the right side. The middle turbinate was medialized and the osteomeatal complex was identified with a july probe. Using a 90 degree backbiter, the uncinate process was reflected anteriorly and removed using a combination of sharp and powered dissection. The maxillary antrostomy was then created and widened by identifying the natural ostia and opening the sinus with straight coleen-cut forceps, backbiter, and microdebrider. Continuing with the microdebrider, the anterior ethmoid bulla was opened. Next, the left maxillary antrostomy was carried out in identical fashion. ? No clinical evidence of CSF throughout the case.? With all sinuses opened and clear, nasopore packing was placed in the middle meatus bilaterally. Hemostasis was ensured. Lastly, the bilateral inferior turbinates were reduced submucosally using 2mm microdebrider and then outfractured with a sayer elevator. This significantly opened the airway. Bruno splints were then placed to secure the septum in the midline.? At this point, the procedure was concluded. Care the patient was transferred back to the anesthesia team and the patient was awoke in the operating room and transferred back to the PACU in stable condition. Oli Guerrero M.D. Estimated Blood Loss 10 Packing Yes (bruno splints and nasopore bilaterally) Pathology None sent Complications No immediate complications Condition Stable Disposition PACU
[2025-04-19] MEDS: ceFAZolin 2 GM in SODIUM CHLORIDE 0.9% IV 50 ML 100 ML IVPB (09:12)
[2025-04-19] MEDS: OXYMETAZOLINE HCL 0.05% NAS 15 ML BTL (*BKC) 1 SPRAY NASAL (09:38)
[2025-04-19] MEDS: LIDO 1%/EPINEPHRINE 1:100,000 20 ML VIAL 10 ML INFILTRATE (09:40)
[2025-04-19] MEDS: MUPIROCIN 2% OINT 22 GM TUBE 1 APPLIC TOPICAL (10:00)
[2025-04-19] MEDS: fentaNYL CITRATE INJ (*CRX) 100 MCG/2 ML VIAL 25 MCG IV PUSH ×4 (10:20→10:55)
== END 2025-04-19 12:20 | disposition home or self-care (01) ==
PROVIDERS: PCP Family Medicine; Visit Provider Otolaryngology
PROC: (CPT 30520; principal; 2025-04-19 09:30)
PROC: (CPT 30520; 2025-04-19 09:30)
PROC: (CPT 30520; 2025-04-19 09:30)
DX: J34.2 Deviated nasal septum (principal); J32.0 Chronic maxillary sinusitis; J34.3 Hypertrophy of nasal turbinates; K21.9 Gastro-esophageal reflux disease without esophagitis; E66.9 Obesity, unspecified; Z68.36 Body mass index [BMI] 36.0-36.9, adult; Z98.890 Other specified postprocedural states; Z87.891 Personal history of nicotine dependence; Z85.41 Personal history of malignant neoplasm of cervix uteri; Z85.828 Personal history of other malignant neoplasm of skin; Z80.42 Family history of malignant neoplasm of prostate
CPT/HCPCS: 30520; 30140; 31256; 61782; J0690; A9270; J1100; J2004; J2250; J2405; J2704; J3010; J7120